=== PATIENT | female | born 1955 | race African-American/Black ===

== ENCOUNTER 2018-02-04 13:42 | Emergency (ER) | payer MEDICARE ==
[~2018-02-04] VITALS: Ht 170.2 cm; Wt 87.0 kg
[~2018-02-04 13:42] MED LIST: COZA50TA PO; HYDR-2768 PO; IBUP600T26 PO; METH750T2 PO
[2018-02-04 13:45] VITALS: BP 163/75; PULSE 93; RESP 18; TEMP 98.2; O2SAT 99
[2018-02-04] MEDS ORDERED: ZITHTAB PO (15:07)
--- NOTE | 2018-02-04 15:22 | PD ---
HPI Chief Complaint: ENT Complaint Time Seen by Provider: 15:06 Travel History International Travel<30 days: No Contact w/Intl Traveler<30days: No Traveled to known affect area: No History of Present Illness HPI Patient comes emergency department complaining of sore throat ongoing for several weeks and has got worse over the past week. Patient states that 2 of her grandchildren tested positive for strep last week. Patient reports she has been doing gargles with no improvement symptoms. Patient reports symptoms seem to be worse at night. Severity mild. Pain radiates into her right ear. Denies any known fevers, cough, headache, neck pain, nausea, vomiting, or loss change in bowel or bladder. PFSH Past Medical History Cardiac Catheterization: No Cardiovascular Problems: Yes High Cholesterol: Yes Congestive Heart Failure: No Diabetes: Yes (JUST WATCHES AT THIS TIME) Patient Takes Glucophage: No (metformin ) Heparin Induced Thrombocytopen: No Hypertension: Yes Past Surgical History Other Surgery: Yes (laminectomy) Social History Alcohol Use: Yes (wine occ) Tobacco Use: No Substance Use: No Allergies-Medications (Allergen,Severity, Reaction): Coded Allergies: Sulfa (Sulfonamide Antibiotics) (Verified Allergy, Severe, 02/04/18) codeine (Unverified Allergy, Severe, 02/04/18) amoxicillin (Verified Allergy, Intermediate, rash, 02/04/18) Reported Meds & Prescriptions Reported Meds & Active Scripts Active Zithromax Z-Selvin (Azithromycin) 250 Mg Dspk 250 Mg PO DIRECTED 500 MG (2 tabs) day 1, then 1 tab days 2-5. Methocarbamol 750 Mg Tab 750 Mg PO TID PRN Ibuprofen 600 Mg Tab 600 Mg PO TID PRN Reported Hctz (Hydrochlorothiazide) 25 Mg Tab 25 Mg PO DAILY Cozaar (Losartan Potassium) 50 Mg Tab 100 Mg PO DAILY Review of Systems Except as stated in HPI: all other systems reviewed are Neg Physical Exam Narrative GENERAL: Well-developed, over the nourished, in no acute distress, and non-ill appearing. SKIN: Focused skin assessment warm and dry. HEAD: Atraumatic. Normocephalic. EYES: Pupils equal and round. EOMI. No scleral icterus. No injection or drainage. ENT: No nasal bleeding or discharge. Mucous membranes pink and moist. Tympanic membranes pearly renae bilaterally. Posterior pharynx mild erythematous without exudate. Uvula is midline. Patient reports tenderness to palpation of the right maxillary sinus. Patient swallowing own saliva and speaking full sentences without difficulty. NECK: Trachea midline. No cervical lymphadenopathy. Supple. No nuclear rigidity. CARDIOVASCULAR: Regular rate and rhythm. No murmur appreciated. RESPIRATORY: No accessory muscle use. No respiratory distress. Clear to auscultation. Breath sounds equal bilaterally. No coughing on exam. MUSCULOSKELETAL: No obvious deformities. No clubbing. No cyanosis. No edema. Full range of motion. NEUROLOGICAL: Awake and alert. No obvious cranial nerve deficits. Motor grossly within normal limits. Normal speech. PSYCHIATRIC: Appropriate mood and affect; insight and judgment normal. Data Data Last Documented VS Vital Signs Date Time Temp Pulse Resp B/P (MAP) Pulse Ox O2 Delivery O2 Flow Rate FiO2 02/04/18 13:45 98.2 93 18 163/75 (104) 99 Orders Orders Ed Discharge Order (02/04/18 15:22) [facility] Medical Decision Making Medical Screen Exam Complete: Yes Emergency Medical Condition: Yes Differential Diagnosis Strep pharyngitis, viral pharyngitis, allergies, sinusitis Narrative Course Patient looks great, non-ill appearing. The patient is tolerating fluids and is well hydrated. Appears pharyngitis possibly Strep. No clinical evidence by history or evaluation to suspect meningitis and/or sepsis. There was no evidence to suggest peritonsillar abscess or retropharyngeal abscess. I discussed with the patient, diagnosis, plan of care and to follow up with the patients primary physician and/or ENT. The patient was given antibiotics. The patient was instructed to return if the worsens in anyway, especially if not tolerating fluids, increased pain or swelling, difficulty swallowing or breathing, or as needed. The patient agreed with plan. Patient in no obvious distress upon re-evaluation. Patient was asked if they wanted to speak to my attending, which the patient did not wish to do at this time. Any questions/concerns in reference to patient diagnosis/condition discussed and clarified prior to patient's discharge. Reinforced sheer importance of close follow up with patient's primary physician or primary care clinic and/or ENT. Instructed patient to return to ED immediately, if symptoms return/worsen. Patient showed understanding of above instructions. Further instructions and recommendations were detailed in discharge paperwork. Patient ambulated without difficulty out of ED at discharge. Diagnosis Primary Impression: Pharyngitis Qualified Codes: J02.9 - Acute pharyngitis, unspecified Referrals: Glen Cho MD Patient Instructions: General Instructions, Pharyngitis (ED) Additional Instructions: Follow-up with your primary care physician and/or ENT in 3-5 days for reevaluation. Take all medication as prescribed. Continue gargling with warm salt water gargles for symptomatic relief. Drink plenty of non-caffeinated and nonalcoholic fluids. Return to the emergency department if symptoms get worse. Med/Other Pt SpecificInfo: Prescription(s) given Scripts Azithromycin (Zithromax Z-Selvin) 250 Mg Dspk 250 MG PO DIRECTED for Infection, #1 DSPK 0 Refills 500 MG (2 tabs) day 1, then 1 tab days 2-5. Prov: Francisco Javier Smith MD 02/04/18 Disposition: 01 DISCHARGE HOME Condition: Stable Aime Marshall Feb 04, 2018 15:22
== END 2018-02-04 19:32 | disposition home or self-care (01) ==
LOC: NEPD 13:42
DX: J02.9 Acute pharyngitis, unspecified (principal); E78.00 Pure hypercholesterolemia, unspecified; E11.9 Type 2 diabetes mellitus without complications; I10 Essential (primary) hypertension
CPT/HCPCS: 99283

== ENCOUNTER 2018-02-12 21:54 | Emergency (ER) | payer MEDICARE ==
[~2018-02-12] VITALS: Ht 170.2 cm; Wt 85.0 kg
[~2018-02-12 21:54] MED LIST changes: +ZITHTAB PO
[2018-02-12 22:00] VITALS: BP 161/78; PULSE 89; RESP 16; TEMP 98.8; O2SAT 98
[2018-02-12] MEDS ORDERED: METF500T PO (22:35)
--- NOTE | 2018-02-12 22:56 | PD ---
HPI Chief Complaint: ENT Complaint Time Seen by Provider: 22:31 Travel History International Travel<30 days: No Contact w/Intl Traveler<30days: No Traveled to known affect area: No History of Present Illness HPI 62-year-old black female presents to emergency Department with complaints of sore throat and tenderness in her neck for the last 2 days. She states that she was seen on the 15 of this month and was diagnosed with acute pharyngitis and given Zithromax. She states that her symptoms slowly improved over a period of one week but now returned the last 2 days. She denies any fever or chills. She states the pain is worse with swallowing and palpation of her neck. She states that 2 other family members were diagnosed with strep throat this past week. She does admit to runny nose, sore throat, cough and slight green mucus in the morning. She denies any earache, shortness of breath, wheezing, nausea, vomiting, diarrhea or urinary symptoms. PFSH Past Medical History Narrative Medical Hypercholesterolemia, Diabetes, hypertension, chronic back pain Cardiac Catheterization: No Cardiovascular Problems: Yes High Cholesterol: Yes Congestive Heart Failure: No Diabetes: Yes Patient Takes Glucophage: No Heparin Induced Thrombocytopen: No Hypertension: Yes Tetanus Vaccination: < 5 Years Past Surgical History Narrative Surgical Laminectomy and fusion Other Surgery: Yes (laminectomy) Social History Alcohol Use: Yes (wine occ) Tobacco Use: No Substance Use: No Allergies-Medications (Allergen,Severity, Reaction): Coded Allergies: Sulfa (Sulfonamide Antibiotics) (Verified Allergy, Severe, 02/12/18) codeine (Unverified Allergy, Severe, 02/12/18) amoxicillin (Verified Allergy, Intermediate, rash, 02/12/18) oak (Verified Allergy, Unknown, 02/12/18) peanut (Verified Allergy, Unknown, 02/12/18) Reported Meds & Prescriptions Reported Meds & Active Scripts Active Magic Mouthwash Adult Liq (Multi-Ingredient Mouthwash/Gargle) 120 Ml Susp 5 Ml SWISH-SWAL ACHS Each 5mL contains: Nystatin 200,000units, Diphenhydramine 4.25mg, Viscous Lidocaine 10mg, Prakash syrup 0.8 mL Deltasone (Prednisone) 20 Mg Tab 20 Mg PO BID Reported Metformin (Metformin HCl) 500 Mg Tab 500 Mg PO DAILY With a meal Hctz (Hydrochlorothiazide) 25 Mg Tab 25 Mg PO DAILY Review of Systems Except as stated in HPI: all other systems reviewed are Neg Physical Exam Narrative GENERAL: Well-developed, well-nourished in no acute distress. Nontoxic appearing. HEAD: Normocephalic, atraumatic. EYES: Pupils equal round and reactive. Extraocular motions intact. No scleral icterus. No injection or drainage. ENT: TMs clear without erythema. The external auditory canals clear. Nose: clear . Posterior pharynx is pink and moist. No tonsillar edema or exudate. Uvula midline. Airway patent. NECK: Trachea midline.Supple, nontender, moves head freely. No central bony tenderness or spasm. CARDIOVASCULAR: Regular rate and rhythm without murmurs, gallops, or rubs. RESPIRATORY: Clear to auscultation. Breath sounds equal bilaterally. No wheezes , rales, or rhonchi. GASTROINTESTINAL: Abdomen soft, non-tender, nondistended. No hepato-splenomegaly , or palpable masses. No guarding. EXTREMITIES: No clubbing, cyanosis, or edema. No joint tenderness, effusion, or edema noted. BACK: Nontender without deformity or crepitance. No flank tenderness. Data Data Last Documented VS Vital Signs Date Time Temp Pulse Resp B/P (MAP) Pulse Ox O2 Delivery O2 Flow Rate FiO2 02/12/18 22:00 98.8 89 16 161/78 (105) 98 Room Air Orders Orders Group A Rapid Strep Screen (02/12/18 22:40) Strep Culture (Group A) (02/12/18 22:45) Prednisone (Deltasone) (02/12/18 23:45) Ed Discharge Order (02/12/18 23:40) MDM Medical Decision Making Medical Screen Exam Complete: Yes Emergency Medical Condition: Yes Medical Record Reviewed: Yes Interpretation(s) Rapid strep: Negative Differential Diagnosis MDM: High Differential diagnoses: Strep throat, viral pharyngitis, mono, peritonsillar abscess, retropharyngeal abscess, James's angina Narrative Course Patient's rapid strep is negative. She is given 40 mg of prednisone by mouth. She is advised to follow-up with her primary care doctor as well as the ENT she was referred to on her last visit. This is viral pharyngitis Diagnosis Primary Impression: viral pharyngitis Patient Instructions: General Instructions Additional Instructions: Rest. Force fluids. Saltwater gargles. Tylenol and Advil. Chloraseptic [place] Cepastat lozenge. Prednisone. Magic mouthwash. Follow-up with a primary care doctor in 2-3 days. Follow-up with the ENT physician you where referred to on your last visit. Call their office Thursday.. Return to the ER if any problems. Med/Other Pt SpecificInfo: Prescription(s) given Scripts Nnnvepkk-Njftoulftjwodlr-Heosoztla Liq (Magic Mouthwash Adult Liq) 120 Ml Susp 5 ML SWISH-SWAL ACHS for Mouth sores, #120 ML 0 Refills Each 5mL contains: Nystatin 200,000units, Diphenhydramine 4.25mg, Viscous Lidocaine 10mg, Prakash syrup 0.8 mL Prov: Manuel Mata MD 02/12/18 Prednisone (Deltasone) 20 Mg Tab 20 MG PO BID, #10 TAB 0 Refills Prov: Manuel Mata MD 02/12/18 Disposition: 01 DISCHARGE HOME Condition: Stable Garret Anders Feb 12, 2018 22:56
[2018-02-12] MEDS ORDERED: MAGICADU2 SWISH-SWAL (23:40)
[2018-02-12] MEDS ORDERED: PRED-503 PO (23:40)
[2018-02-12] MEDS ORDERED: predniSONE 20 MG TAB PO ONE (23:45)
== END 2018-02-12 23:55 | disposition home or self-care (01) ==
LOC: NEPK 21:54
DX: J02.8 Acute pharyngitis due to other specified organisms (principal); E78.00 Pure hypercholesterolemia, unspecified; E11.9 Type 2 diabetes mellitus without complications; I10 Essential (primary) hypertension; G89.29 Other chronic pain; M54.9 Dorsalgia, unspecified
CPT/HCPCS: 87081; 87880; 99283; J7512